=== PATIENT | female | born 1990 | race Caucasian/White ===

== ENCOUNTER 2024-01-09 18:28 | Inpatient (IN) | payer BC ==
[2024-01-09] MEDS ORDERED: Sodium Chloride 0.9% 10 ML Syringe FLUSH PRN (19:12)
[2024-01-09] MEDS ORDERED: Lidocaine 1% 50 ML MDV INJECT PRN (19:12)
[2024-01-09] MEDS ORDERED: Nalbuphine 10 MG/ML Syringe IVPUSH PRN (19:12)
[2024-01-09] MEDS ORDERED: Oxytocin/Lactated Ringers 30 UNIT/500 ML BAG IV SCH (19:15)
[2024-01-09] MEDS ORDERED: Lactated Ringers 1,000 ML IV SCH (19:15)
[2024-01-09 19:29] LABS: BASOPHILS PERCENT AUTO 0.2 % (0.0-1.0); EOSINOPHILS ABSOLUTE AUTO 0.2 K/mm3 (0.0-0.4); EOSINOPHILS PERCENT AUTO 1.1 % (0.0-6.0); HEMATOCRIT 41.6 % (37.0-47.0); HEMOGLOBIN 13.7 gm/dl (12.0-16.0); IMMATURE GRAN ABSOLUTE AUTO 0.07 K/mm3 (0.00-0.05); IMMATURE GRAN PERCENT AUTO 0.4 % (0.0-0.4); LYMPHOCYTES ABSOLUTE AUTO 1.7 K/mm3 (1.0-4.8); LYMPHOCYTES PERCENT AUTO 10.7 % (24.0-44.0); MEAN CORPUSCULAR HEMOGLOBIN 31.1 pg (28.0-32.0); MEAN CORPUSCULAR HGB CONC 32.9 g/dl (32.0-36.0); MEAN CORPUSCULAR VOLUME 94.3 fl (83.0-99.0); MONOCYTES ABSOLUTE AUTO 1.3 K/mm3 (0.0-0.8); MONOCYTES PERCENT AUTO 7.9 % (0.0-8.0); NEUTROPHILS ABSOLUTE AUTO 12.8 K/mm3 (1.8-7.7); NEUTROPHILS PERCENT AUTO 79.7 % (41.0-71.0); PLATELET COUNT,PLT 172 K/mm3 (150-400); RED BLOOD CELL COUNT 4.41 M/mm3 (4.10-5.30); WHITE BLOOD CELL COUNT,WBC 16.02 K/mm3 (3.9-11.3)
[2024-01-09] MEDS ORDERED: Ondansetron 4 MG/2 ML SDV IVPUSH PRN (21:00)
[2024-01-09 21:17] LABS: A/G RATIO 0.6 (1-2); ALBUMIN 2.7 g/dl (3.4-5.0); ANION GAP 14.2 (5-15); BILIRUBIN TOTAL 0.2 mg/dL (0.2-1.0); BUN/CREATININE RATIO 17.1 (14-18); CALCIUM 9.8 mg/dL (8.5-10.1); CREATININE 0.7 mg/dL (0.55-1.02); EST CRCL DRUG DOSING (CG) 120.58 mL/min; POTASSIUM,K 4.2 mEq/L (3.5-5.1); PROTEIN TOTAL,TP 6.9 g/dl (6.4-8.2)
[2024-01-09 21:52] LABS: PROTEIN,URINE RANDOM < 6.0 mg/dL (0.0-11.8)
[2024-01-10] MEDS: Benzocaine/Menthol 20%-0.5% Spray 78 GM Cannister TOP PRN (07:27)
[2024-01-10] MEDS: Acetaminophen 325 MG Tab PO PRN (07:28)
[2024-01-10] MEDS: Witch Hazel Medicated Pads 40/Jar TOP PRN (07:28)
[2024-01-10] MEDS: Sodium Chloride 0.9% 10 ML Syringe FLUSH SCH (07:36)
[2024-01-10] MEDS: Ibuprofen 600 MG Tab PO SCH (07:44)
== END 2024-01-11 17:50 | disposition home or self-care (01) | DRG 560 ==
LOC: JD.OBCHECK 18:28 → JD.OB 18:32 → JD.OBCHECK 19:11 → JD.OB 19:12 → OBSVTOIN 01-10 04:27 → JD.OB 01-10 04:28
PROVIDERS: ADMIT Family Medicine; ATTEND Family Medicine
PROC: 10E0XZZ Delivery of Products of Conception, External Approach (ICD-10-PCS; principal; 2024-01-10)
PROC: 10907ZC Drainage of Amniotic Fluid, Therapeutic from Products of Conception, Via Natural or Artificial Opening (ICD-10-PCS; 2024-01-10)
PROC: 0KQM0ZZ Repair Perineum Muscle, Open Approach (ICD-10-PCS; 2024-01-10)
DX: O70.1 Second degree perineal laceration during delivery (principal); Z37.0 Single live birth; Z3A.39 39 weeks gestation of pregnancy
CPT/HCPCS: 36415; 51701; 59025; 59409; 80053; 82570; 84156; 85025; 86592; A9270-GY

== ENCOUNTER 2025-01-04 17:30 | Emergency (ER) | payer BC ==
[2025-01-04 18:10] LABS: BASOPHILS ABSOLUTE AUTO 0.1 K/mm3 (0.0-0.2); BASOPHILS PERCENT AUTO 0.5 % (0.0-1.0); EOSINOPHILS ABSOLUTE AUTO 0.1 K/mm3 (0.0-0.4); EOSINOPHILS PERCENT AUTO 0.6 % (0.0-6.0); HEMOGLOBIN 12.3 gm/dl (12.0-16.0); IMMATURE GRAN ABSOLUTE AUTO 0.04 K/mm3 (0.00-0.05); IMMATURE GRAN PERCENT AUTO 0.3 % (0.0-0.4); LYMPHOCYTES ABSOLUTE AUTO 1.3 K/mm3 (1.0-4.8); LYMPHOCYTES PERCENT AUTO 9.6 % (24.0-44.0); MEAN CORPUSCULAR HEMOGLOBIN 29.6 pg (28.0-32.0); MEAN CORPUSCULAR HGB CONC 33.2 g/dl (32.0-36.0); MEAN CORPUSCULAR VOLUME 88.9 fl (83.0-99.0); MEAN PLATELET VOLUME 10.5 fl (9.4-12.3); MONOCYTES ABSOLUTE AUTO 0.5 K/mm3 (0.0-0.8); MONOCYTES PERCENT AUTO 3.7 % (0.0-8.0); NEUTROPHILS ABSOLUTE AUTO 11.3 K/mm3 (1.8-7.7); NEUTROPHILS PERCENT AUTO 85.3 % (41.0-71.0); PLATELET COUNT,PLT 324 K/mm3 (150-400); RED BLOOD CELL COUNT 4.16 M/mm3 (4.10-5.30); WHITE BLOOD CELL COUNT,WBC 13.19 K/mm3 (3.9-11.3)
[2025-01-04 18:35] LABS: ALBUMIN 3.7 g/dl (3.4-5.0); ANION GAP 13.6 (5-15); BILIRUBIN TOTAL 0.4 mg/dL (0.2-1.0); CREATININE 0.4 mg/dL (0.55-1.02); EST CRCL DRUG DOSING (CG) 209.06 mL/min; POTASSIUM,K 3.6 mEq/L (3.5-5.1); PROTEIN TOTAL,TP 7.3 g/dl (6.4-8.2)
[2025-01-04] MEDS: Sodium Chloride 0.9% 1,000 ML IV ONE (20:34)
== END 2025-01-04 20:35 | disposition home or self-care (01) ==
LOC: JD.ED 17:30
DX: O20.9 Hemorrhage in early pregnancy, unspecified (principal); Z79.899 Other long term (current) drug therapy; Z3A.00 Weeks of gestation of pregnancy not specified
CPT/HCPCS: 36415; 76830; 76830-26; 80053; 84702; 85025; 99284

== ENCOUNTER 2025-03-03 09:52 | Emergency (ER) | payer BC ==
[2025-03-03 10:42] LABS: APPEARANCE,URINE TURBID (Clear); GLUCOSE,URINE NEGATIVE (Negative); OCCULT BLOOD,URINE 3+ (Negative)
[2025-03-03 10:51] LABS: SQUAMOUS EPITHELIAL CELLS,UR 0-5 /hpf (0-5)
[2025-03-03] MEDS: cefTRIAXone 1 GM, Lidocaine 1% 2.1 ML IM ONE (11:28)
== END 2025-03-03 12:04 | disposition home or self-care (01) ==
LOC: JD.ED 09:52
DX: N39.0 Urinary tract infection, site not specified (principal); Z79.899 Other long term (current) drug therapy
CPT/HCPCS: 81001; 81025; 87086; 96372; 99284; J0696; J2003; 87088; 87186; 99283